=== PATIENT | female | born 1980 | race Caucasian/White ===

== ENCOUNTER → 2018-04-15 | Outpatient (CLI) | payer OTHER ==
[~2018-04-15] MED LIST: MOTRIN 800800 MG/TAB PO; PHILLIPS M400 MG/51 PO; PRENATAL1 TA7 PO; STOOL SOFTENER100 M2 PO; ZANTAC 150MG T150 MG PO
== END ==
LOC: COL.CARD 10:34
DX: R00.2 Palpitations (principal)

== ENCOUNTER → 2019-09-15 | Outpatient (CLI) | payer BC | LOC: COL.RAD 10:13 | DX: R10.11 Right upper quadrant pain (principal); R10.31 Right lower quadrant pain ==

== ENCOUNTER 2020-05-18 01:47 | Inpatient (IN) | payer BC ==
[2020-05-18] VITALS (28 sets, daily range): BP systolic 109–166; BP diastolic 55–93; PULSE 57–90; TEMP 97.8–98.2
[~2020-05-18] VITALS: Ht 177.8 cm; Wt 121.8 kg
--- NOTE | 2020-05-18 01:50 | NUR ---
0150- PT PRESENTS TO LDR COMPLAINING OF LEAKING FLUID AND MILD CONTRACTIONS, AMBULATORY TO ROOM LR4, CHANGED INTO GOWN. 0159- EFM X2 APPLIED. PT REPORTS SHE STARTED HAVING SOME LEAKING AT 0010. REPORTS FEELING BABY MOVE. SHE IS HAVING SOME PINK SPOTTING. STATES HER CONTRACTIONS ARE NOT REGULAR AT THIS TIME. PLAN OF CARE FOR LABOR CHECK DISCUSSED AND QUESTIONS ANSWERED. 0205- AMNITRACE INDETERMINANT. SVE WITHOUT GEL BY THIS NURSE 1-/-3 WITH NO OBVIOUS POOLING. VAGINAL AREA IS MOIST THOUGH. 0210- NURSING ADMISSION HISTORY AND ASSESSMENT COMPLETED. DISCUSSED PT GETTING UP AND WEARING A PAD WHILE WALKING TO SEE IF SHE HAS ANYMORE LEAKING. PT AGREEABLE TO THIS. 0215- PT UP TO AMBULATE WITH PAD AND PANTIES. 0250- PT BACK TO BED, STATES SHE HAS HAD A COUPLE "GUSHES" OF FLUID. AMNITRACE IS NEGATIVE ON PERIPAD AND AGAIN FROM VAGINA. ROM TEST COLLECTED. PLAN OF CARE DISCSSED WITH PT TO SEND ROM TEST TO LAB. PT AGREEABLE. 0255- ROM TEST SENT TO LAB.
[2020-05-18] MEDS ORDERED: PRILOSEC 20MG20 MG PO (02:38)
[2020-05-18] MEDS ORDERED: CALCIUM-500 5001 CTB PO (02:39)
--- NOTE | 2020-05-18 03:20 | NUR ---
0320- ROM TEST POSITIVE. 0321- ROLES CALLED AND UPDATED CHARTED, ORDERS FOR ADMISSION. 0330- PT AND BOYFRIEND UPDATED ON PLAN OF CARE, QUESTIONS ANSWERED. PT AGREEABLE WITH PLAN AT THIS TIME. 0350- IV START CHARTED, BLOOD DRAWN FOR LAB. LR INFUSING. 0410- CONSENTS SIGNED. 0430- PT REPORTS FEELING CONTRACTIONS ABOUT EVERY 6 MINUTES. SHE STATES THEY ARE UNCOMFORTABLE ENOUGH THAT SHE NOTICES THEM. PITOCIN STARTED ORDERED. DISCUSSED WITH PT RISKS AND BENEFITS. PT VERBALIZES UNDERSTANDING.
[2020-05-18 04:00] LABS: BASO % 0.2 % (0.0-2.0); EOS # 0.1 (0.0-0.7); EOS % 0.8 % (0-4.0); GRAN # 11.3 (1.4-6.5); GRAN % 80.6 % (42.2-75.2); HEMOGLOBIN 11.8 g/dl (12.5-16.0); LYMPH # 1.7 (1.2-3.4); LYMPH % 12.1 % (20.0-51.0); MEAN CELL VOLUME 91 fl (80.0-100.0); MEAN CORPUSCULAR HEMOGLOBIN 30 pg (27.0-31.0); MEAN CORPUSCULAR HGB CONC 33 g/dl (33.0-37.0); MEAN PLATELET VOLUME 12.2 fl (7.4-10.4); MONO # 0.8 (0.1-0.6); MONO % 5.7 % (1.7-9.3); PLATELET COUNT 206 K/mm3 (130-400); RED BLOOD COUNT 3.96 M/mm3 (4.10-5.30); REDCELL DISTRIBUTION WIDTH-CV 12.5 % (11.5-14.5)
[2020-05-18 04:04] LABS: HEMATOCRIT 36.2 % (37.0-47.0)
--- NOTE | 2020-05-18 05:00 | NUR ---
0500- NURSE TO BEDSIDE TO INCREASE PITOCIN. PT UP TO BATHROOM. 0502- NURSE AT BEDSIDE ADJUSTING MONITORS. PT IS SITTING UP ON EDGE OF BED FOR COMFORT. 0507- MONITOR TRACING A LITTLE BETTER BUT STILL NOT TRACING WELL DUE TO MOTHER'S POSITION.
--- NOTE | 2020-05-18 05:30 | NUR ---
0530- NURSE TO BEDSIDE, PT DECLINES SVE AT THIS TIME.
--- NOTE | 2020-05-18 07:05 | NUR ---
0705- THIS RN TO BEDSIDE TO HELP PATIENT TO SITTING POSITION FOR EPIDURAL PLACEMENT. MATERNAL 02 SAT PLACED. EFM AND TOCO TRACING INTERMITTENTLY DUE TO MATERNAL POSITION. THIS RN REMAINS AT BEDSIDE. 0708- TERRIE BRITO TO BEDSIDE FOR EPIDURAL. DISCUSSED RISKS AND PROCEDURE WITH PATIENT. 0713- SINGLE SHOT, SEE ANESTHESIA RECORD. 0715- THIS RN HELPS PATIENT TO WL POSITIION IN THE BED. VITALS STABLE. EFM AND TOCO TRACING. THIS RN REMAINS AT BEDSIDE. 0725- PATIENT REPORTS FEELING HER CONTRACTIONS IN HER RECTUM. THIS RN ASKED PATIENT IF IT IS CONSTANTLY OR JUST WITH CONTRACTIONS. PATIENT UNABLE TO GET FULLY COMFORTABLE AT THIS TIME. 0730- SVE BY THIS RN REVEALS 8-0 STATION. PATIENT UNCOMFORTABLE AND HITS HER BUTTON. THIS RN CALLS CHARGE AND REPORTS THE SVE CHANGE. THIS RN CALLS TECH TO HAVE A TABLE SET UP. 0731- ROLES NOTIFIED AND SHE ADVISED SHE IS ON HER WAY. THIS RN REMAINS AT BEDSIDE. CHARGE NURSE HELPS THIS RN AND BRINGS THINGS IN FOR DELIVERY JUST IN CASE. TERRIE BRITO COMES TO BEDSIDE TO GIVE PATIENT MORE MEDICINE TO HELP HER GET COMFORTABLE. THIS RN REMAINS AT BEDSIDE WITH PATIENT. 0749- ROLES TO BEDSIDE. 0750- SVE BY PROVIDER REVEALS /0. THIS RN REMAINS AT BEDSIDE PATIENT IS STILL FEELING SOME PRESSURE BUT STATES IT IS GETTING BETTER. 0800- PATIENT REPORTS NOT FEELING PRESSURE. FEELING VERY NUMB AND HEAVY. EFM AND TOCO TRACING. THIS RN GOES TO DESK. CALL LIGHT WITHIN REACH. PATIENT DENIES FURTHER NEEDS AND RESTS.
--- NOTE | 2020-05-18 08:15 | NUR ---
0815- THIS RN TO BEDSIDE TO PERFORM SVE DUE TO LATE DECELERATION NOTED ON THE FHR TRACING. PATIENT COMPLETE AND 0 STATION. DISCUSSED WITH PATIENT PRACTICE PUSHING, NOTIFIED PROVIDER WHO ADVISED TO DO SOME PRACTICE PUSHING. NOTIFIED STAFF. 0822- FIRST PRACTICE PUSH. THIS RN REMAINS AT BEDSIDE AND PUSHING WITH PATIENT. 0823- REYNOLDS REMOVED BY RN Porfirio BHATIA. 150 OUTPUT NOTED. 0828- DR. BROOKS TO BEDSIDE TO EVALUATE PUSHING. 0835- GOOD PROGRESS NOTED AND DR. BROOKS PREPARES FOR DELIVERY. ROOM AND PATIENT SET UP FOR DELIVERY. NURSERY NURSE AT BEDSIDE. THIS RN REMAINS AT BEDSIDE. 0842- OF VIABLE FEMALE INFANT. INFANT PLACED TO MOTHERS ABDOMEN WHERE NURSERY NURSE ASSUMES CARE AT THIS TIME. PITOCIN TURNED OFF. 0844- OF PLACENTA. FUNDUS FIRM AND MODERATE AMOUNT OF BLOOD NOTED. PITOCIN TURN ON PER PROTOCOL TO 333ML/HR. REPAIRS DONE BY PROVIDER. PROVIDER RED NELLY PATIENT WITH SMALL AMOUNT OF CLEAR YELLOW URINE RETURN. 0850- VITALS TAKEN, FUNDUS FIRM. PATIENT AND ROOM CLEANED UP AND PUT BACK TOGETHER. NEW CHUX, PERIPAD AND ICEPACK TO PERINEUM. RECOVERY STARTED.
--- NOTE | 2020-05-18 12:18 | NUR ---
PATIENT REQUESTING MIRALAX BECAUSE SHE TAKES IT EVERY MORNING AT HOME. WOULD LIKE TO HAVE MIRALAX AND NOTHING ELSE FOR SUBSTITUTION IF THAT IS OKAY. I ADVISED I WOULD CALL DR. BROOKS, WHO IS [employer] PROFESSIONAL AND ASK FOR THAT ORDER. SHE VERBALIZED UNDERSTANDING WITH NO FURTHER QUESTIONS. CALL LIGHT WITHIN REACH.
--- NOTE | 2020-05-18 12:45 | NUR ---
1245- THIS RN TO BEDSIDE TO STRAIGHT CATH PATIENT DUE TO INABILITY TO GET UP AFTER EPIDURAL YET AND A DEVIATED FUNDUS. 1150 URINE OUTPUT WAS NOTED. URETHRA NOTED TO BE SWOLLEN AND SOME PINK TINGED URINE. DISCUSSED WITH PATIENT KEEPING AND EYE ON THAT. GAVE NEW ICEPACK AND OFFERED IBUPROFEN BUT THE PATIENT REFUSED. PATIENT TOLERATED PROCEDURE WELL AND DENIES FURTHER NEEDS. CALL LIGHT WITHIN REACH.
[2020-05-19 01:30] VITALS: BP 136/59; PULSE 66
[2020-05-19 07:25] VITALS: BP 151/93; PULSE 71; TEMP 97.9
[2020-05-19] MEDS ORDERED: MOTRIN 600600 MG/TAB PO (07:48)
[2020-05-19] MEDS ORDERED: PERCOCET 325 MG1 TA2 PO (07:48)
[2020-05-19 10:25] VITALS: BP 144/87; PULSE 76
[2020-05-19 16:15] VITALS: BP 150/79; PULSE 62; TEMP 98.1
[2020-05-19 19:45] VITALS: BP 151/90; PULSE 67; TEMP 98
[2020-05-20 08:26] VITALS: BP 129/75; PULSE 79; TEMP 97.7
--- NOTE | 2020-05-20 10:15 | NUR ---
Initial visit; Patient thanked Community Administrator for offering congratulations and God's blessings for the of her daughter. Community Administrator thanked family for choosing [facility].
== END 2020-05-20 12:05 | disposition home or self-care (01) | DRG 807 ==
LOC: LDRO 01:47 → LDR 01:50 → LDRO 03:20 → LDR 03:21 → OB 14:30
PROVIDERS: Obstetrics & Gynecology; ADMIT Obstetrics & Gynecology
PROC: 10E0XZZ Delivery of Products of Conception, External Approach (ICD-10-PCS; principal; 2020-05-18)
PROC: 0KQM0ZZ Repair Perineum Muscle, Open Approach (ICD-10-PCS; 2020-05-18)
PROC: 3E033VJ Introduction of Other Hormone into Peripheral Vein, Percutaneous Approach (ICD-10-PCS; 2020-05-18)
DX: O70.1 Second degree perineal laceration during delivery (principal); Z37.0 Single live birth; Z3A.38 38 weeks gestation of pregnancy
CPT/HCPCS: J2590; J2795; J7120

== ENCOUNTER → 2020-08-08 | Outpatient (CLI) | payer BC ==
[~2020-08-08] MED LIST changes: +CALCIUM-500 5001 CTB PO; +MOTRIN 600600 MG/TAB PO; +PERCOCET 325 MG1 TA2 PO; +PRILOSEC 20MG20 MG PO
== END ==
LOC: COL.RAD 09:54
DX: R74.8 Abnormal levels of other serum enzymes (principal)

== ENCOUNTER → 2022-02-12 | Outpatient (CLI) | payer BC | LOC: MC.RAD 08:20 | DX: Z12.31 Encounter for screening mammogram for malignant neoplasm of breast (principal); N64.89 Other specified disorders of breast ==

== ENCOUNTER → 2022-02-19 | Outpatient (CLI) | payer BC | LOC: MC.RAD 10:25 | DX: N64.89 Other specified disorders of breast (principal); N64.9 Disorder of breast, unspecified ==

== ENCOUNTER → 2023-06-15 | Outpatient (CLI) | payer OTHER | LOC: MC.RAD 13:32 | DX: Z12.31 Encounter for screening mammogram for malignant neoplasm of breast (principal); N63.41 Unspecified lump in right breast, subareolar ==